=== PATIENT | female | born 1965 | race American Indian/Alaskan Native ===

== ENCOUNTER 2018-02-19 12:40 | Outpatient (CLI) | payer MEDICARE ==
--- NOTE | 2018-02-19 16:20 | Mammography Report ---
left DIGITAL DIAGNOSTIC MAMMOGRAM: 02/19/18 12:40:00 CLINICAL: For clip placement immediately status post MRI guided needle biopsy. COMPARISON:11/20/17 mammogram and 01/02/18 MRI FINDINGS: A biopsy clip is now identified at 3 o'clock and it correlates with the site of today's MRI guided biopsy. IMPRESSION: Concordant clip placement status post MRI guided biopsy. BI-RADS CATEGORY: 4--Suspicious Pathology pending.
--- NOTE | 2018-02-19 16:34 | Magnetic Resonance Report ---
MRI GUIDED VACUUM ASSISTED CORE BIOPSY LEFT BREAST: 02/19/18 12:40:00 CLINICAL: Diagnosed with ovarian cancer within the last year and suspicious non-Mass enhancement of the left breast on recent MRI. COMPARISON: 01/02/18 MRI breast bilateral FINDINGS: Consent for the procedure was obtained. A Vibrant dynamic postcontrast series was performed on a 1.5 [place] magnet using an 8 channel Sentinelle dedicated breast coil. 15.0 cc of Multihance was injected into previously for the contrast portion of the exam and consent was obtained prior to the administration of contrast. A lesion was localized and targeted using [employer] Sentinelle biopsy software. The skin was anesthetized with 1% lidocaine and a small dermatotomy was made. 2% lidocaine was administered for deeper anesthesia. After placement of the introducer and after obtaining a prebiopsy scan, it was determined that the targeting was slightly off. I chose a different biopsy hole within the block and administered additional 1% lidocaine and 2% lidocaine. This lesion was determined to be 18 mm deep. 9-G biopsy was performed at this site with an [employer] vacuum assisted device. Imaging demonstrated satisfactory positioning of the probe and samples were obtained around the clock face. A clip was placed after confirmation of adequate sampling. The probe was removed and hemostasis was achieved with pressure to the site. A sterile dressing was applied. The patient tolerated the procedure well and there were no apparent complications. A two view mammogram demonstrated concordant clip placement and a small post biopsy hematoma with a small volume of air near the clip. The patient left the department in good condition and was given instructions for wound care and follow-up. IMPRESSION: Uncomplicated MRI biopsy with clip placement left breast.
== END 2018-02-19 12:41 | disposition home or self-care (01) ==
LOC: SPVIMAG 12:40
PROVIDERS: ATTEND Surgery
DX: N60.12 Diffuse cystic mastopathy of left breast (principal); G43.909 Migraine, unspecified, not intractable, without status migrainosus; I10 Essential (primary) hypertension; E78.00 Pure hypercholesterolemia, unspecified; Z90.710 Acquired absence of both cervix and uterus; Z98.891 History of uterine scar from previous surgery; Z85.43 Personal history of malignant neoplasm of ovary; Z79.899 Other long term (current) drug therapy; Z88.6 Allergy status to analgesic agent; Z90.721 Acquired absence of ovaries, unilateral
CPT/HCPCS: 19085; 77065; 88305; A4648; A9577

== ENCOUNTER 2021-06-15 09:30 | Outpatient (CLI) | payer MEDICARE ==
--- NOTE | 2021-06-16 17:21 | Mammography Report ---
DIGITAL SCREENING MAMMOGRAM WITH CAD, 06/15/2021 CLINICAL INFORMATION / INDICATION: Routine screening mammography. SCREENING MAMMO TECHNIQUE: Digital bilateral 2D mammography was obtained in the craniocaudal and mediolateral obliqu e projections. This examination was interpreted with the benefit of Computer-Aided Detection analysis . COMPARISON: 01/04/2013 through 12/12/2019. FINDINGS: Breast Density: There are scattered areas of fibroglandular density. No dominant mass, suspicious calcifications, or architectural distortion in either breast. There is a biopsy clip in the left lateral posterior breast. IMPRESSION: No mammographic evidence of malignancy. Follow up recommendation: Routine yearly BI-RADS Category 2: BENIGN. A "normal" or negative report should not discourage follow up or biopsy of a clinically significant f inding. A written summary of these findings will be mailed to the patient. The patient will be entered into a mammography reporting system which will generate a reminder letter for the patient's next appointmen t at the appropriate interval. The [employer] recommends yearly mammograms starting at age 40 and continuing as l jayla as a woman is in good health. Breast MRI is recommended for women with an approximate 20-25% or greater lifetime risk of breast cancer, including women with a strong family history of breast or ova sami cancer or who have been treated for Hodgkin's disease. Signer Name: Javi Ellis MD Signed: 06/16/2021 5:16 PM Workstation Name: [id number]
== END 2021-06-15 09:31 | disposition home or self-care (01) ==
LOC: SPVWC 09:30
PROVIDERS: ATTEND Surgery
DX: Z12.31 Encounter for screening mammogram for malignant neoplasm of breast (principal)
CPT/HCPCS: 77067